=== PATIENT | female | born 1945 | race American Indian/Alaskan Native ===

== ENCOUNTER 2019-01-11 16:03 | Inpatient (IN) | payer MEDICARE ==
--- NOTE | 2019-01-11 16:32 | Emergency Department Report ---
ED Shortness of Breath HPI - General Chief Complaint: Dyspnea/Respdistress Stated Complaint: MITESH Time Seen by Provider: 01/11/19 16:20 Source: patient Mode of arrival: Ambulatory Limitations: No Limitations - History of Present Illness Initial Comments: Patient is a 73-year-old female that presents emergency room with complaints of shortness of breath or difficulty breathing. Patient states her symptoms started about 45 minutes prior to arrival. Patient states her symptoms are worsening. Patient states that she is here visiting from [place]. Patient states she has congestive heart failure and is on dialysis but forgot her medications in [place] and missed her dialysis today. Patient states that she's been here for 1 day. Patient states she had dialysis in [place] 2 days ago. Patient states that she is on a Tuesday, , and Tuesday schedule. Patient denies chest pain. Patient denies fever and chills. Patient denies nausea vomiting. Patient denies diaphoresis. Patient complains of dyspnea on exertion. Patient complains of bilateral lower extremity edema. Patient denies lower extremity pain MD Complaint: shortness of breath, cough -: Sudden Severity: severe Consistency: constant Improves With: oxygen, upright position Known History Of: congestive heart failure, other (dialysis) Context: medication noncompliance (pt missed hd and bp meds. ) Treatments Prior to Arrival: oxygen - Related Data Home Oxygen Therapy: Yes Home Oxygen Amount: 2 Liters Allergies Allergy/AdvReac Type Severity Reaction Status Date / Time No Known Allergies Allergy Unverified 01/11/19 16:25 ED Review of Systems ROS: Stated complaint: MITESH Other details as noted in HPI Constitutional: denies: chills, fever Eyes: denies: eye pain, eye discharge, vision change ENT: denies: ear pain, throat pain Respiratory: shortness of breath, SOB with exertion, SOB at rest. denies: cough, wheezing Cardiovascular: edema. denies: chest pain, palpitations Endocrine: no symptoms reported Gastrointestinal: denies: abdominal pain, nausea, diarrhea Genitourinary: denies: urgency, dysuria, discharge Musculoskeletal: denies: back pain, joint swelling, arthralgia Skin: denies: rash, lesions Neurological: denies: headache, weakness, paresthesias Psychiatric: denies: anxiety, depression Hematological/Lymphatic: denies: easy bleeding, easy bruising ED Past Medical Hx - Past Medical History Previous Medical History?: Yes Hx Hypertension: Yes Hx Congestive Heart Failure: Yes Hx Diabetes: Yes Hx Renal Disease: Yes (hd - t,th, sat) Additional medical history: renal disease, chf - Surgical History Past Surgical History?: Yes Additional Surgical History: hd av shunt - Family History Family history: hypertension - Social History Smoking Status: Never Smoker Substance Use Type: None ED Physical Exam - General Limitations: No Limitations General appearance: alert, in no apparent distress - Head Head exam: Present: atraumatic, normocephalic - Eye Eye exam: Present: normal appearance, PERRL Pupils: Present: normal accommodation - ENT ENT exam: Present: mucous membranes moist - Neck Neck exam: Present: normal inspection - Respiratory Respiratory exam: Present: respiratory distress, rales - Cardiovascular Cardiovascular Exam: Present: regular rate, normal rhythm, tachycardia. Absent: systolic murmur, diastolic murmur, rubs, gallop - GI/Abdominal GI/Abdominal exam: Present: soft, normal bowel sounds. Absent: distended, tenderness, guarding, rebound - Rectal Rectal exam: Present: deferred - Extremities Exam Extremities exam: Present: full ROM, normal capillary refill, pedal edema. Absent: tenderness, joint swelling, calf tenderness - Back Exam Back exam: Present: normal inspection - Neurological Exam Neurological exam: Present: alert, oriented X3 - Psychiatric Psychiatric exam: Present: normal affect, normal mood - Skin Skin exam: Present: warm, dry, intact, normal color. Absent: rash ED Course Vital Signs 01/11/19 01/11/19 01/11/19 16:17 16:20 16:31 Temperature 97.6 F Pulse Rate 107 H 102 H 105 H Respiratory 36 H 35 H 39 H Rate Blood Pressure 189/88 Blood Pressure 197/80 [Left] O2 Sat by Pulse 100 100 99 Oximetry 01/11/19 01/11/19 01/11/19 16:45 17:01 17:15 Temperature Pulse Rate 104 H 103 H 101 H Respiratory 38 H 40 H 36 H Rate Blood Pressure 189/88 188/81 188/81 Blood Pressure [Left] O2 Sat by Pulse 100 100 100 Oximetry 01/11/19 01/11/19 01/11/19 17:30 17:31 17:45 Temperature Pulse Rate 102 H 102 H Respiratory 19 21 22 Rate Blood Pressure 178/75 178/75 Blood Pressure [Left] O2 Sat by Pulse 99 100 100 Oximetry 01/11/19 01/11/19 01/11/19 18:01 18:15 18:31 Temperature Pulse Rate 100 H 98 H 98 H Respiratory 35 H 35 H 27 H Rate Blood Pressure 178/75 178/75 178/75 Blood Pressure [Left] O2 Sat by Pulse 100 100 100 Oximetry 01/11/19 01/11/19 01/11/19 18:45 19:01 19:11 Temperature Pulse Rate 98 H 94 H 97 H Respiratory 21 37 H 29 H Rate Blood Pressure 188/85 192/78 192/78 Blood Pressure [Left] O2 Sat by Pulse 100 95 99 Oximetry 01/11/19 01/11/19 01/11/19 19:21 19:31 19:41 Temperature Pulse Rate 97 H 95 H 96 H Respiratory 13 19 25 H Rate Blood Pressure 174/71 187/76 187/76 Blood Pressure [Left] O2 Sat by Pulse 100 98 97 Oximetry 01/11/19 01/11/19 01/11/19 19:45 20:00 20:15 Temperature 98.1 F Pulse Rate 96 H 96 H 91 H Respiratory 16 Rate Blood Pressure 192/80 192/80 171/83 Blood Pressure [Left] O2 Sat by Pulse Oximetry 01/11/19 20:30 Temperature Pulse Rate 90 Respiratory Rate Blood Pressure 191/77 Blood Pressure [Left] O2 Sat by Pulse Oximetry - Reevaluation(s) Reevaluation #1: Initial evaluation complete. It appears the patient is having acute exacerbation of CHF. Patient on 100% oxygen. Patient's oxygen will be decreased since her oxygen saturations on her percent. 01/11/19 16:20 Reevaluation #2: Patient's O2 sat is maintaining around her percent. Will continue to decrease oxygen support. Patient states she is feeling a little bit better 01/11/19 17:58 Discussed all results with patient. Patient agrees to plan of care and admis vicki. Family at bedside and agrees with plan of care and admission. 01/11/19 19:03 - Consultations Consultation #1: Nephrology consulted for emergency dialysis secondary to hyperkalemia and missed dialysis and CHF volume overload. Discussed case with Dr. Chase/. Consult will be placed 01/11/19 18:50 Consultation #2: Hospital was consulted for admission. Hospitalist to admit patient. 01/11/19 19:01 ED Medical Decision Making - Lab Data Result diagrams: 01/11/19 16:43 01/11/19 16:43 - EKG Data -: EKG Interpreted by Me EKG shows normal: sinus rhythm, axis, intervals, QRS complexes, ST-T waves Rate: tachycardia - Radiology Data Radiology results: report reviewed, image reviewed interpreted by me: Edema noted on chest x-ray and CHF changes PROCEDURE: XR CHEST 1V AP TECHNIQUE: Chest single AP HISTORY: Dyspnea COMPARISONS: FINDINGS: There is bilateral pulmonary diffuse interstitial prominence. Cardiac silhouette is prominent in size. There is central pulmonary vascular prominence. No pleural effusion identified. No confluent pulmonary infiltrates seen. IMPRESSION: Pulmonary interstitial opacities which is nonspecific however findings are most suggestive of CHF. - Medical Decision Making Patient is a 73-year-old female that presents emotional complaints of shortness of breath. Patient noncompliant with dialysis and her pressure/CHF medications. She had labs done and significant for elevated BNP, elevated potassium, CKD, and elevated troponin most likely secondary to CKD. Nephrology consult for emergency dialysis due to elevated potassium and volume overload and CHF. He was found to be hypoxic and placed on oxygen. Hypoxia improved with oxygen. Patient given Lasix in the ER. Patient also given calcium or elevated potassium. Patient to be admitted to the hospitalist service for further evaluation treatment. - Differential Diagnosis volume overload. On compliance. CHF. Shortness of breath. Critical Care Time: Yes Critical care attestation.: If time is entered above; I have spent that time in minutes in the direct care of this critically ill patient, excluding procedure time. Critical Care Time: 45 minutes ED Disposition Clinical Impression: Hyperkalemia, Noncompliance, ESRD (end stage renal disease) on dialysis, SOB (shortness of breath), Hypoxia CHF (congestive heart failure) Qualifiers: Heart failure type: unspecified Heart failure chronicity: acute on chronic Qualified Code(s): I50.9 - Heart failure, unspecified Disposition: OP ADMIT IP TO THIS HOSP Is pt being admited?: Yes Does the pt Need Aspirin: No Condition: Critical Time of Disposition: 19:
[2019-01-11 16:59] LABS: Basophils # (Auto) 0.1 K/mm3 (0.0-0.1); Basophils % (Auto) 0.9 % (0.0-1.8); Eosinophils # (Auto) 0.2 K/mm3 (0.0-0.4); Eosinophils % (Auto) 3.6 % (0.0-4.3); Hematocrit 31.9 % (30.3-42.9); Hemoglobin 10.3 gm/dl (10.1-14.3); Lymphocytes # (Auto) 1.2 K/mm3 (1.2-5.4); Lymphocytes % (Auto) 20.4 % (13.4-35.0); Mean Corpuscular HGB Conc 32 % (30-34); Mean Corpuscular Volume 106 fl (79-97); Monocytes # (Auto) 0.5 K/mm3 (0.0-0.8); Monocytes % (Auto) 9.1 % (0.0-7.3); Platelet Count 246 K/mm3 (140-440); Red Blood Count 3.01 M/mm3 (3.65-5.03); Red Cell Distribution Width 17.9 % (13.2-15.2)
[2019-01-11 17:21] LABS: Creatine Kinase MB 3.4 ng/mL (0.0-4.0)
[2019-01-11 17:22] LABS: Calcium 9.2 mg/dL (8.4-10.2)
[2019-01-11 17:42] LABS: Chol/HDL Ratio 2.02 %
[2019-01-11] MEDS ORDERED: LASIX IV ONE (17:58)
--- NOTE | 2019-01-11 18:29 | XRay Report ---
PROCEDURE: XR CHEST 1V AP TECHNIQUE: Chest single AP HISTORY: Dyspnea COMPARISONS: FINDINGS: There is bilateral pulmonary diffuse interstitial prominence. Cardiac silhouette is prominent in size . There is central pulmonary vascular prominence. No pleural effusion identified. No confluent pulmon ayden infiltrates seen. IMPRESSION: Pulmonary interstitial opacities which is nonspecific however findings are most suggestive of CHF. This document is electronically signed by Jerald Molina MD., January 11 2019 06:27:41 PM ET
--- NOTE | 2019-01-11 19:01 | History and Physical Report ---
History of Present Illness Chief complaint: I tara breathe History of present illness: 73 YO Female with ESRD on HD(T,R,Sa), HTN, Systolic CHF, DM, MO, Chronic Respiratory Failure on 2L home oxygen presents to ED for evaluation. Pt states that she hs experienced shortness of breath over the past 1 day with progressive ly worsening symptoms over the same time frame, as well as worsening symptoms over the past 1 hour prior to arrival. Pt states she has is visiting from [place], and has been noncompliant with dialysis as well as her antihypertensive medication. Pt was last dialyzed 2 days ago. Patient denies chest pain. Patient denies fever and chills, chest pain, palpitations, NVD, Productive cough, skin rash, or recent ill contacts. Patient acknowledges dypsnea on exertion, Orthopnea/PND, bilateral lower extremity edema. Patient seen and evaluated in ED and found to have ESRD, complicated by Acute Respiratory Failure, and Fluid Overload secondary to missed dialysis. Nephrology consulted in ED for urgent dialysis. No prior admissions for review. No medication listed for reconciliation at time of admission. Past History Past Medical History: diabetes, ESRD, heart failure, hypertension, other (MO) Past Surgical History: Other (Dialysis access) Social history: , lives with family Family history: diabetes, hypertension Medications and Allergies Allergies Allergy/AdvReac Type Severity Reaction Status Date / Time No Known Allergies Allergy Unverified 01/11/19 16:25 Home Medications Medication Instructions Recorded Confirmed Last Taken Type Unobtainable 01/12/19 01/12/19 Unknown History Review of Systems Constitutional: no weight loss, no weight gain, no chills Ears, nose, mouth and throat: no ear pain, no tinnitis, no nose pain Cardiovascular: orthopnea, shortness of breath, dyspnea on exertion, paroxysmal nocturnal dyspnea, high blood pressure, decreased exercise tolerance, no chest pain, no palpitations, no rapid/irregular heart beat Respiratory: no cough, no excessive sputum Gastrointestinal: no abdominal pain, no vomiting, no constipation Genitourinary Female: no pelvic pain, no menorrhagia, no urinary frequency Rectal: no pain, no bleeding, no hemorrhoids Musculoskeletal: no neck stiffness, no shooting arm pain, no low back pain, no leg numbness/tingling Integumentary: no rash, no redness, no wounds Neurological: no transient paralysis, no weakness, no tingling, no syncope Psychiatric: no anxiety, no sleep disturbances, no change in libido Endocrine: no cold intolerance, no heat intolerance, no excessive thirst, no polydipsia Hematologic/Lymphatic: no easy bruising, no easy bleeding Allergic/Immunologic: no urticaria, no anaphylaxis Exam - Constitutional Vitals: Temp Pulse Resp BP Pulse Ox 97.6 F 101 H 36 H 188/81 100 01/11/19 16:20 01/11/19 17:15 01/11/19 17:15 01/11/19 17:15 01/11/19 17:15 General appearance: Present: mild distress, obese - EENT Eyes: Present: PERRL ENT: hearing intact, clear oral mucosa - Neck Neck: Present: supple, normal ROM - Respiratory Respiratory effort: labored Respiratory: bilateral: diminished, rhonchi - Cardiovascular Heart Sounds: Present: S1 & S2. Absent: rub, click - Extremities Extremities: pulses symmetrical Extremity abnormal: edema Peripheral Pulses: within normal limits - Abdominal General gastrointestinal: Present: soft, non-tender, non-distended, normal bowel sounds Female genitourinary: Present: normal - Integumentary Integumentary: Present: clear, warm, dry - Musculoskeletal Musculoskeletal: gait normal, strength equal bilaterally - Psychiatric Psychiatric: appropriate mood/affect, intact judgment & insight - Neurologic Neurologic: CNII-XII intact, moves all extremities Results - Labs CBC & Chem 7: 01/11/19 16:43 01/12/19 04:40 Labs: Abnormal lab results 01/11/19 01/11/19 01/11/19 Range/Units 16:43 16:43 16:43 RBC 3.01 L (3.65-5.03) M/mm3 MCV 106 H (79-97) fl MCH 34 H (28-32) pg RDW 17.9 H (13.2-15.2) % Calloway % (Auto) 9.1 H (0.0-7.3) % Potassium 6.4 H* (3.6-5.0) mmol/L Chloride 96.6 L (98-107) mmol/L BUN 50 H (7-17) mg/dL Creatinine 8.5 H (0.7-1.2) mg/dL Glucose 327 H (65-100) mg/dL CK-MB (CK-2) Rel Index 6.6 H (0-4) Troponin T 0.110 H* (0.00-0.029) ng/mL NT-Pro-B Natriuret Pep (0-900) pg/mL HDL Cholesterol 72 H (40-59) mg/dL 01/11/19 Range/Units 16:43 RBC (3.65-5.03) M/mm3 MCV (79-97) fl MCH (28-32) pg RDW (13.2-15.2) % Calloway % (Auto) (0.0-7.3) % Potassium (3.6-5.0) mmol/L Chloride (98-107) mmol/L BUN (7-17) mg/dL Creatinine (0.7-1.2) mg/dL Glucose (65-100) mg/dL CK-MB (CK-2) Rel Index (0-4) Troponin T (0.00-0.029) ng/mL NT-Pro-B Natriuret Pep 37618 H (0-900) pg/mL HDL Cholesterol (40-59) mg/dL Assessment and Plan - Patient Problems (1) Acute respiratory failure Current Visit: Yes Status: Acute Qualifiers: Respiratory failure complication: hypoxia Qualified Code(s): J96.01 - Acute respiratory failure with hypoxia Plan to address problem: Admit to telemetry, supplemental oxygen, nebulizer therapy, NIPPV as clinically indicated, pulse oximetry, (2) Diabetes Current Visit: Yes Status: Acute Plan to address problem: ADA diet, insuin, accu check (3) HTN (hypertension) Current Visit: Yes Status: Acute Qualifiers: Hypertension type: essential hypertension Qualified Code(s): I10 - Essential (primary) hypertension Plan to address problem: monitor bp q shift, Hydralazine prn, resume home medication (4) CHF (congestive heart failure) Current Visit: Yes Status: Acute Qualifiers: Heart failure type: unspecified Heart failure chronicity: acute on chronic Qualified Code(s): I50.9 - Heart failure, unspecified Plan to address problem: Admit to telemetry, strict I/O daily weight, monitor uop q shift, urgent dialysis, afterload reduction, resume home medication, diuresis, BNP, supplemental oxygen (5) ESRD (end stage renal disease) on dialysis Current Visit: Yes Status: Acute Plan to address problem: Nephrology consulted in ED for urgent dialysis. (6) DVT prophylaxis Current Visit: Yes Status: Acute Plan to address problem: SCD to BLE while in bed. DVT prophylaxis with heparin
[2019-01-11] MEDS ORDERED: ZOFRAN IV PRN (19:02)
[2019-01-11] MEDS ORDERED: PROVENTIL IH PRN (19:02)
[2019-01-11] MEDS ORDERED: TYLENOL PO PRN (19:02)
[2019-01-11] MEDS ORDERED: SODIUM CHLORIDE FLUSH SYRINGE 10 ML IV PRN (19:02)
[2019-01-11] MEDS ORDERED: NACL 0.9% 100 ML IV PRN (19:16)
[2019-01-11] MEDS ORDERED: CALCIUM CHLORIDE 1,000 MG in NACL 0.9% 100 ML IV ONE (19:30)
[2019-01-11] MEDS ORDERED: NACL 0.9 (PRIMING MACHINE ONLY DIALYSIS) MC ONE (21:48)
[2019-01-11 22:41] LABS: Hepatitis B Surface Antigen Non-Reactive (Negative); Hepatitis C Virus Antibody Non-Reactive (NonReactive)
[2019-01-11] MEDS: SODIUM CHLORIDE FLUSH SYRINGE 10 ML IV SCH (23:55)
[2019-01-12 05:50] LABS: Calcium 9.1 mg/dL (8.4-10.2)
--- NOTE | 2019-01-12 07:45 | Consultation ---
History of Present Illness - Reason for Consult Consult date: 01/12/19 end stage renal disease, hyperkalemia, accelerated hypertension, other (volume overload) - History of Present Illness The patient is a 73 YO Female with history significant for Morbid obesity, DM type 2, HTN, ESRD on HD(TTS), Systolic CHF and Chronic Respiratory Failure on 2L home oxygen who presented to ED with c/o shortness of breath over the past 1 day. Patient states she has is visiting from [place], and has been noncompliant with diet and antihypertensive medication. She also states orthopnea and bilateral leg swelling. She was last dialyzed 2 days ago. Patient denies chest pain, cough, hemoptysis, fever, chills, chest pain, palpitations, N, V, D or abd pain. Patient was found to have volume overlaod complicated by Acute Respiratory Failure and hyperkalemia. Nephrology was consulted for urgent dialysis. Past History Past Medical History: diabetes, ESRD, heart failure, hypertension, other (MO) Past Surgical History: Other (Dialysis access) Social history: , lives with family Family history: diabetes, hypertension Medications and Allergies Allergies Allergy/AdvReac Type Severity Reaction Status Date / Time No Known Allergies Allergy Unverified 01/11/19 16:25 Home Medications Medication Instructions Recorded Confirmed Last Taken Type Unobtainable 01/12/19 01/12/19 Unknown History Active Meds: Active Medications Acetaminophen (Tylenol) 650 mg PO Q4H PRN PRN Reason: Pain MILD(1-3)/Fever >100.5/GALO Albuterol (Proventil) 2.5 mg IH Q4HRT PRN PRN Reason: Shortness Of Breath Furosemide (Lasix) 20 mg IV 0600,1800 [facility] Heparin Sodium (Porcine) (Heparin) 5,000 unit SUB-Q Q12HR JASPER Hydralazine HCl (Apresoline) 10 mg IV Q6HR PRN PRN Reason: Hypertension Sodium Chloride (Nacl 0.9%) 100 mls @ 999 mls/hr IV ANALY PRN PRN Reason: Hypotension Ondansetron HCl (Zofran) 4 mg IV Q8H PRN PRN Reason: Nausea And Vomiting Sodium Chloride (Sodium Chloride Flush Syringe 10 Ml) 10 ml IV BID [facility] Last Admin: 01/11/19 23:55 Dose: 10 ml Documented by: Sodium Chloride (Sodium Chloride Flush Syringe 10 Ml) 10 ml IV PRN PRN PRN Reason: LINE FLUSH Review of Systems Constitutional: weight gain, no weight loss, no fever, no chills, no anorexia Breasts: deferred Cardiovascular: orthopnea, edema, shortness of breath, dyspnea on exertion, high blood pressure, leg edema, decreased exercise tolerance, no chest pain, no palpitations, no syncope, no lightheadedness Respiratory: shortness of breath, dyspnea on exertion, home oxygen, no cough, no hemoptysis Gastrointestinal: no abdominal pain, no nausea, no vomiting, no diarrhea, no melena Genitourinary Female: no dysuria, no hematuria Rectal: no bleeding Musculoskeletal: no muscle weakness Integumentary: no rash, no redness, no wounds, no jaundice Neurological: no paralysis, no weakness, no syncope, no change in speech Exam - Vital Signs Vital signs: Vital Signs Pulse Resp Pulse Ox 107 H 36 H 100 01/11/19 16:17 01/11/19 16:17 01/11/19 16:17 - General Appearance General appearance: well-developed, well-nourished, appears stated age, obese, other (not in distress) EENT: ATNC, PERRL, mucous membranes moist, hearing intact, vision intact Neck: Present: neck supple, trachea midline Respiratory: Clear to Ascultation, Decreased Breath Sounds Heart: regular, S1S2, no murmurs Gastrointestinal: Present: normoactive bowel sounds Integumentary: no rash, warm and dry Neurologic: no focal deficit, no asterixis, alert and oriented x3 Musculoskeletal: Present: other (bilateral LE edema, left arm AVF) Results - Lab Results 01/11/19 16:43 01/12/19 04:40 Most recent lab results Calcium 9.1 mg/dL (8.4-10.2) 01/12/19 04:40 Assessment and Plan 1. Acute hyperkalemia: Secondary to medical non-compliance. S/p urgent hemodialysis yesterday. Potassium level is better today. Renal diet. 2. Volume overload: S/p UF with HD yesterday. Isolated UF today. Advised to limit fluid intake. 3. ESRD: Continue hemdialysis three times a week. 4. Uncontrolled HTN: UF with HD. 5. Anemia: Present on admission. Epogen as needed. 6. DM type 2.
[2019-01-12] MEDS ORDERED: APRESOLINE IV PRN (09:00)
[2019-01-12] MEDS ORDERED: NACL 0.9% 100 ML IV PRN (09:15)
[2019-01-12] MEDS: HEPARIN SUB-Q SCH ×2 (09:28→22:31)
[2019-01-12] MEDS: SODIUM CHLORIDE FLUSH SYRINGE 10 ML IV SCH ×2 (09:31→22:32)
[2019-01-12] MEDS ORDERED: D50W (25GM) Syringe IV PRN (11:58)
--- NOTE | 2019-01-12 11:58 | Progress Note ---
Assessment and Plan Assessment and plan: Acute hypoxemic respiratory failure. Continue O2 and BiPAP as clinically indicated. Etiology secondary to volume overload. ESRD. Patient has been noncompliant with hemodialysis and presents with volume overload. Continue hemodialysis per nephrology. Hyperkalemia. Resolved with hemodialysis. Volume overload. As above. Accelerated Hypertension. Continue antihypertensive medications. Patient has been noncompliant. Medical noncompliance. History Interval history: No new issues overnight Hospitalist Physical - Constitutional Vitals: Temp Pulse Resp BP Pulse Ox 98.6 F 77 18 132/41 100 01/12/19 08:29 01/12/19 11:00 01/12/19 10:08 01/12/19 08:29 01/12/19 10:08 General appearance: Present: mild distress, obese - EENT Eyes: Present: PERRL, EOM intact ENT: hearing intact, clear oral mucosa, dentition normal - Neck Neck: Present: supple, normal ROM - Respiratory Respiratory effort: normal Respiratory: bilateral: CTA - Cardiovascular Rhythm: regular Heart Sounds: Present: S1 & S2. Absent: gallop, rub - Extremities Extremities: no ischemia, No edema, Full ROM - Abdominal General gastrointestinal: soft, non-tender, non-distended, normal bowel sounds - Integumentary Integumentary: Present: clear, warm, dry - Neurologic Neurologic: CNII-XII intact, moves all extremities Results - Labs CBC & Chem 7: 01/11/19 16:43 01/12/19 04:40 Labs: Laboratory Last Values WBC 5.8 K/mm3 (4.5-11.0) 01/11/19 16:43 RBC 3.01 M/mm3 (3.65-5.03) L 01/11/19 16:43 Hgb 10.3 gm/dl (10.1-14.3) 01/11/19 16:43 Hct 31.9 % (30.3-42.9) 01/11/19 16:43 MCV 106 fl (79-97) H 01/11/19 16:43 MCH 34 pg (28-32) H 01/11/19 16:43 MCHC 32 % (30-34) 01/11/19 16:43 RDW 17.9 % (13.2-15.2) H 01/11/19 16:43 Plt Count 246 K/mm3 (140-440) 01/11/19 16:43 Lymph % (Auto) 20.4 % (13.4-35.0) 01/11/19 16:43 [place] % (Auto) 9.1 % (0.0-7.3) H 01/11/19 16:43 Eos % (Auto) 3.6 % (0.0-4.3) 01/11/19 16:43 Baso % (Auto) 0.9 % (0.0-1.8) 01/11/19 16:43 Lymph # 1.2 K/mm3 (1.2-5.4) 01/11/19 16:43 [place] # 0.5 K/mm3 (0.0-0.8) 01/11/19 16:43 Eos # 0.2 K/mm3 (0.0-0.4) 01/11/19 16:43 Baso # 0.1 K/mm3 (0.0-0.1) 01/11/19 16:43 Seg Neutrophils % 66.0 % (40.0-70.0) 01/11/19 16:43 Seg Neutrophils # 3.8 K/mm3 (1.8-7.7) 01/11/19 16:43 Sodium 138 mmol/L (137-145) 01/12/19 04:40 Potassium 4.8 mmol/L (3.6-5.0) D 01/12/19 04:40 Chloride 97.1 mmol/L (98-107) L 01/12/19 04:40 Carbon Dioxide 29 mmol/L (22-30) 01/12/19 04:40 Anion Gap 17 mmol/L 01/12/19 04:40 BUN 28 mg/dL (7-17) H 01/12/19 04:40 Creatinine 5.6 mg/dL (0.7-1.2) H 01/12/19 04:40 Estimated GFR 9 ml/min 01/12/19 04:40 BUN/Creatinine Ratio 5 % 01/12/19 04:40 Glucose 222 mg/dL (65-100) H 01/12/19 04:40 POC Glucose 124 (70-105) H 01/12/19 08:33 Calcium 9.1 mg/dL (8.4-10.2) 01/12/19 04:40 Total Bilirubin 0.30 mg/dL (0.1-1.2) 01/11/19 16:43 AST 26 units/L (5-40) 01/11/19 16:43 ALT 24 units/L (7-56) 01/11/19 16:43 Alkaline Phosphatase 93 units/L (35-129) 01/11/19 16:43 Total Creatine Kinase 51 units/L (30-135) 01/11/19 16:43 CK-MB (CK-2) 3.4 ng/mL (0.0-4.0) 01/11/19 16:43 CK-MB (CK-2) Rel Index 6.6 (0-4) H 01/11/19 16:43 Troponin T 0.110 ng/mL (0.00-0.029) H* 01/11/19 16:43 NT-Pro-B Natriuret Pep 79744 pg/mL (0-900) H 01/11/19 16:43 Total Protein 7.5 g/dL (6.3-8.2) 01/11/19 16:43 Albumin 4.0 g/dL (3.9-5) 01/11/19 16:43 Albumin/Globulin Ratio 1.1 % 01/11/19 16:43 Triglycerides 58 mg/dL (2-149) 01/11/19 16:43 Cholesterol 146 mg/dL (50-199) 01/11/19 16:43 LDL Cholesterol Direct 72 mg/dL (50-130) 01/11/19 16:43 HDL Cholesterol 72 mg/dL (40-59) H 01/11/19 16:43 Cholesterol/HDL Ratio 2.02 % 01/11/19 16:43 Hepatitis A IgM Ab Reactive (NonReactive) A 01/11/19 22:05 Hep Bs Antigen Non-reactive (Negative) 01/11/19 22:05 Hep B Core IgM Ab Non-reactive (NonReactive) 01/11/19 22:05 Hepatitis C Antibody Non-reactive (NonReactive) 01/11/19 22:05 Active Medications - Current Medications Current Medications: Generic Name Dose Route Start Last Admin Trade Name Freq PRN Reason Stop Dose Admin Acetaminophen 650 mg 01/11/19 19:02 Tylenol PO Q4H PRN Pain MILD(1-3)/Fever >100.5/GALO Albuterol 2.5 mg 01/11/19 19:02 Proventil IH Q4HRT PRN Shortness Of Breath Furosemide 20 mg 01/12/19 18:00 Lasix IV 0600,1800 JASPER Heparin Sodium (Porcine) 5,000 unit 01/12/19 10:00 01/12/19 09:28 Heparin SUB-Q 5,000 unit Q12HR JASPER Administration Hydralazine HCl 10 mg 01/12/19 09:00 Apresoline IV Q6H PRN Hypertension Sodium Chloride 100 mls @ 999 mls/hr 01/12/19 09:15 Nacl 0.9% IV ANALY PRN Hypotension Ondansetron HCl 4 mg 01/11/19 19:02 Zofran IV Q8H PRN Nausea And Vomiting Sodium Chloride 10 ml 01/11/19 22:00 01/12/19 09:31 Sodium Chloride Flush Syringe 10 Ml IV 10 ml BID JASPER Administration Sodium Chloride 10 ml 01/11/19 19:02 Sodium Chloride Flush Syringe 10 Ml IV PRN PRN LINE FLUSH
[2019-01-12] MEDS: HumuLIN R SUB-Q SCH ×2 (17:26→22:31)
[2019-01-12] MEDS: LASIX IV SCH (17:26)
[2019-01-12] MEDS ORDERED: NACL 0.9 (PRIMING MACHINE ONLY DIALYSIS) MC ONE (22:18)
[2019-01-13 06:03] LABS: Calcium 9.2 mg/dL (8.4-10.2)
[2019-01-13] MEDS: LASIX IV SCH (06:40)
--- NOTE | 2019-01-13 07:37 | Progress Note ---
Assessment and Plan 1. Acute hyperkalemia: Secondary to medical non-compliance. S/p urgent hemodialysis 2 days ago. Hemodialysis today with low K bath. Renal diet. 2. Volume overload: Volume status is improving after 2 days of HD UF with HD today. Advised to limit fluid intake. 3. ESRD: Continue hemdialysis three times a week. 4. Uncontrolled HTN: BP is better. 5. Anemia: Present on admission. Epogen as needed. 6. DM type 2. 7. Compliance encouraged. Subjective Date of service: 01/13/19 Interval history: Patient was seen and examined at the bedside. Objective - Vital Signs Vital signs: Vital Signs - 12hr 01/12/19 01/12/19 01/12/19 19:45 20:00 20:15 Temperature Pulse Rate 80 80 84 Respiratory Rate Blood Pressure 120/48 152/60 145/48 O2 Sat by Pulse Oximetry 01/12/19 01/12/19 01/12/19 20:30 20:45 21:00 Temperature Pulse Rate 79 81 78 Respiratory Rate Blood Pressure 113/58 140/65 156/70 O2 Sat by Pulse Oximetry 01/12/19 01/12/19 01/12/19 21:10 21:30 22:00 Temperature 98.0 F Pulse Rate 76 87 Respiratory 18 Rate Blood Pressure 150/72 145/62 O2 Sat by Pulse 96 Oximetry 01/12/19 01/12/19 01/13/19 22:49 23:55 04:52 Temperature 99.6 F 98.7 F Pulse Rate 80 101 H 79 Respiratory 20 20 Rate Blood Pressure 153/61 129/43 O2 Sat by Pulse 95 96 Oximetry 01/13/19 07:32 Temperature Pulse Rate Respiratory Rate Blood Pressure O2 Sat by Pulse 96 Oximetry - General Appearance General appearance: well-developed, well-nourished, appears stated age, obese (morbidly obese) EENT: ATNC, PERRL, mucous membranes moist, hearing intact, vision intact Neck: supple Respiratory: Present: Clear to Ascultation, Decreased Breath Sounds Cardiology: regular, S1S2, no murmurs Gastrointestinal: normoactive bowel sounds, no tenderness, obese Integumentary: no rash, warm and dry Neurologic: no focal deficit, no asterixis, alert and oriented x3 Musculoskeletal: other (trace edema of both LEs) Psychiatric: mood/affect appropriate - Lab 01/11/19 16:43 01/13/19 04:29 Most recent lab results Calcium 9.2 mg/dL (8.4-10.2) 01/13/19 04:29 Medications & Allergies - Medications Allergies/Adverse Reactions: Allergies No Known Allergies Allergy (Unverified 01/11/19 16:25) Home Medications: Home Medications Medication Instructions Recorded Confirmed Last Taken Type Unobtainable 01/12/19 01/12/19 Unknown History Active Medications: Generic Name Dose Route Start Last Admin Trade Name Freq PRN Reason Stop Dose Admin Acetaminophen 650 mg 01/11/19 19:02 Tylenol PO Q4H PRN Pain MILD(1-3)/Fever >100.5/GALO Albuterol 2.5 mg 01/11/19 19:02 Proventil IH Q4HRT PRN Shortness Of Breath Dextrose 50 ml 01/12/19 11:58 D50w (25gm) Syringe IV PRN PRN Hypoglycemia Furosemide 20 mg 01/12/19 18:00 01/13/19 06:40 Lasix IV 20 mg 0600,1800 JASPER Administration Heparin Sodium (Porcine) 5,000 unit 01/12/19 10:00 01/12/19 22:31 Heparin SUB-Q 5,000 unit Q12HR JASPER Administration Hydralazine HCl 10 mg 01/12/19 09:00 Apresoline IV Q6H PRN Hypertension Sodium Chloride 100 mls @ 999 mls/hr 01/12/19 09:15 Nacl 0.9% IV ANALY PRN Hypotension Insulin Human Regular 0 units 01/12/19 16:30 01/12/19 22:31 Humulin R SUB-Q Not Given ACHS JASPER Protocol Ondansetron HCl 4 mg 01/11/19 19:02 Zofran IV Q8H PRN Nausea And Vomiting Sodium Chloride 10 ml 01/11/19 22:00 01/12/19 22:32 Sodium Chloride Flush Syringe 10 Ml IV 10 ml BID JASPER Administration Sodium Chloride 10 ml 01/11/19 19:02 Sodium Chloride Flush Syringe 10 Ml IV PRN PRN LINE FLUSH
[2019-01-13] MEDS: HumuLIN R SUB-Q SCH ×2 (07:48→14:44)
[2019-01-13] MEDS ORDERED: NACL 0.9% 100 ML IV PRN (08:29)
[2019-01-13] MEDS ORDERED: PROCRIT SUB-Q ONE (10:00)
--- NOTE | 2019-01-13 10:33 | Discharge Summary ---
Providers - Providers Date of Admission: 01/11/19 19:02 Date of discharge: 01/13/19 Attending physician: LETICIA AMES 01/11/19 19:01 Consult to Physician [CONS] Stat Comment: Consulting Provider: KATI JACOME Physician Instructions: Reason For Exam: hd/hyperk Primary care physician: PRINCIPLE SOFTWARE ENGINEER Hospitalization Reason for admission: ESRD, hyperkalemia, accelerated htn, vol overload Condition: Critical Hospital course: - History of Present Illness The patient is a 73 YO Female with history significant for Morbid obesity, DM type 2, HTN, ESRD on HD(TTS), Systolic CHF and Chronic Respiratory Failure on 2L home oxygen who presented to ED with c/o shortness of breath over the past 1 day [employer]IN[employer] SALESPERSON. Patient stated she was is visiting from [place], and had been noncompliant with diet and antihypertensive medication. She also reported orthopnea and bilateral leg swelling. She was last dialyzed 2 days [employer]IN[employer] SALESPERSON. Patient denied chest pain, cough, hemoptysis, fever, chills, chest pain, palpitations, N, V, D or abd pain. Patient was admitted with diagnosis of volume overlaod complicated by Acute Respiratory Failure and hyperkalemia. Nephrology was consulted for urgent dialysis. The patient underwent hemodialysis in 2 consecutive days with significant improvement. Blood pressure was controlled with reinitiation of home blood pressure medications. Patient is felt to see maximal hospital benefit and will be discharged. Dedicated discharge time 32 minutes Disposition: [id number] TO HOME OR SELFCARE Time spent for discharge: 32 - Discharge Diagnoses (1) Acute respiratory failure Status: Acute Qualifiers: Respiratory failure complication: hypoxia Qualified Code(s): J96.01 - Acute respiratory failure with hypoxia (2) Diabetes Status: Acute (3) ESRD (end stage renal disease) on dialysis Status: Acute (4) HTN (hypertension) Status: Acute Qualifiers: Hypertension type: essential hypertension Qualified Code(s): I10 - Esse ntial (primary) hypertension (5) Hyperkalemia Status: Acute (6) Hypoxia Status: Acute (7) Noncompliance Status: Acute Core Measure Documentation - Palliative Care Palliative Care/ Comfort Measures: Not Applicable - Core Measures Any of the following diagnoses?: none Exam - Constitutional Vitals: Temp Pulse Resp BP Pulse Ox 98.5 F 84 20 132/47 94 01/13/19 07:51 01/13/19 07:59 01/13/19 07:51 01/13/19 07:51 01/13/19 07:51 General appearance: Present: no acute distress, well-nourished - EENT Eyes: Present: PERRL ENT: hearing intact, clear oral mucosa - Neck Neck: Present: supple, normal ROM - Respiratory Respiratory effort: normal Respiratory: bilateral: CTA - Cardiovascular Heart Sounds: Present: S1 & S2. Absent: rub, click - Extremities Extremities: pulses symmetrical, No edema Peripheral Pulses: within normal limits - Abdominal General gastrointestinal: Present: soft, non-tender, non-distended, normal bowel sounds Female genitourinary: Present: normal - Integumentary Integumentary: Present: clear, warm, dry - Musculoskeletal Musculoskeletal: gait normal, strength equal bilaterally - Psychiatric Psychiatric: appropriate mood/affect, intact judgment & insight - Neurologic Neurologic: CNII-XII intact, moves all extremities Plan Activity: no restrictions Weight Bearing Status: Full Weight Bearing Diet: renal Follow up with: PRIMARY CAREMD [Primary Care Provider] - 7 Days
[2019-01-13] MEDS ORDERED: NACL 0.9 (PRIMING MACHINE ONLY DIALYSIS) MC ONE (12:23)
[2019-01-13] MEDS ORDERED: PROCRIT SUB-Q SCH (13:00)
[2019-01-13] MEDS: HEPARIN SUB-Q SCH (14:44)
[2019-01-13 15:14] VITALS: BP 124/53
[2019-01-14] MEDS ORDERED: LASIX ONE (07:08)
== END 2019-01-13 15:47 | disposition home or self-care (01) | DRG 291 ==
LOC: ED 16:03 → 4A 19:02
PROVIDERS: ADMIT Internal Medicine; ATTEND Hospitalist
PROC: 5A1D70Z Performance of Urinary Filtration, Intermittent, Less than 6 Hours Per Day (ICD-10-PCS; principal; 2019-01-11)
PROC: 5A1D70Z Performance of Urinary Filtration, Intermittent, Less than 6 Hours Per Day (ICD-10-PCS; 2019-01-12)
PROC: 5A1D70Z Performance of Urinary Filtration, Intermittent, Less than 6 Hours Per Day (ICD-10-PCS; 2019-01-13)
DX: I13.2 Hypertensive heart and chronic kidney disease with heart failure and with stage 5 chronic kidney disease, or end stage renal disease (principal); J96.01 Acute respiratory failure with hypoxia; N18.6 End stage renal disease; I50.23 Acute on chronic systolic (congestive) heart failure; J96.21 Acute and chronic respiratory failure with hypoxia; Z68.42 Body mass index [BMI] 45.0-49.9, adult; E87.5 Hyperkalemia; E66.01 Morbid (severe) obesity due to excess calories; E11.22 Type 2 diabetes mellitus with diabetic chronic kidney disease; Z99.2 Dependence on renal dialysis; Z99.81 Dependence on supplemental oxygen; Z83.3 Family history of diabetes mellitus; Z82.49 Family history of ischemic heart disease and other diseases of the circulatory system; Z91.19 Patient's noncompliance with other medical treatment and regimen; Z71.89 Other specified counseling
CPT/HCPCS: 36415; 71045; 80048; 80053; 80061; 80074; 82550; 82553; 82962; 83880; 84484; 85025; 93005; 93010; 94760; 96365; 96375; G0378; J0885; J1644; J1940; J7030